=== PATIENT | male | born 1985 | race Caucasian/White ===

== ENCOUNTER 2016-09-15 03:40 | Emergency (ER) | payer OTHER ==
[~2016-09-15] VITALS: Ht 167.6 cm; Wt 70.8 kg
[2016-09-15 03:40] VITALS: BP_SYST 148
[2016-09-15 04:10] VITALS: BP_SYST 148
== END 2016-09-15 04:10 ==
LOC: SED 03:40
DX: Z02.89 Encounter for other administrative examinations (principal)